=== PATIENT | male | born 1955 | race Caucasian/White ===

== ENCOUNTER → 2019-03-31 | Outpatient (CLI) | payer MEDICARE ==
[~2019-03-31] MED LIST: AMLO10 PO; FISH1000; Fiber Tabs625 MG; Garlic X400 MG; METF500 PO; Multiple Vitam1 EAC1; Pravastatin Sod40 MG PO; TRIHYD5075 PO; UBID10
== END | disposition home or self-care (01) ==
LOC: LAB SHORT 11:17 → PLD 11:17
DX: D48.5 Neoplasm of uncertain behavior of skin (principal)
CPT/HCPCS: 88305

== ENCOUNTER → 2019-04-16 | Outpatient (CLI) | payer MEDICARE | END | disposition home or self-care (01) | LOC: LAB SHORT 12:05 → PLD 12:05 | DX: C44.519 Basal cell carcinoma of skin of other part of trunk (principal) | CPT/HCPCS: 88305 ==

== ENCOUNTER 2019-06-23 11:06 | Day surgery (SDC) | payer MEDICARE ==
[~2019-06-23] VITALS: Ht 172.7 cm; Wt 81.5 kg
[2019-06-23] MEDS ORDERED: POTA10T PO (11:45)
== END 2019-06-23 13:37 | disposition home or self-care (01) ==
LOC: ORSCSDS 11:06
PROVIDERS: Internal Medicine Gastroenterology
PROC: 0DBM8ZX Excision of Descending Colon, Via Natural or Artificial Opening Endoscopic, Diagnostic (ICD-10-PCS; principal; 2019-06-23 12:30)
DX: R10.32 Left lower quadrant pain (principal); D12.4 Benign neoplasm of descending colon; Z86.010 Personal history of colon polyps; R19.5 Other fecal abnormalities; E11.9 Type 2 diabetes mellitus without complications; I10 Essential (primary) hypertension; Z79.84 Long term (current) use of oral hypoglycemic drugs; Z79.899 Other long term (current) drug therapy
CPT/HCPCS: 82947; 88305; J2704; J7120

== ENCOUNTER → 2019-09-30 | Outpatient (CLI) | payer MEDICARE ==
[~2019-09-30] MED LIST changes: +POTA10T PO
== END | disposition home or self-care (01) ==
LOC: PLD 12:09 → LAB SHORT 12:09
DX: D22.5 Melanocytic nevi of trunk (principal)
CPT/HCPCS: 88305

== ENCOUNTER → 2020-12-21 | Outpatient (CLI) | payer OTHER | END | disposition home or self-care (01) | LOC: LAB SHORT 12:00 → LAB 12:00 | DX: D22.5 Melanocytic nevi of trunk (principal); L82.1 Other seborrheic keratosis | CPT/HCPCS: 88305 ==

== ENCOUNTER → 2021-06-28 | Outpatient (CLI) | payer OTHER | END | disposition home or self-care (01) | LOC: LAB SHORT 11:12 | DX: D22.5 Melanocytic nevi of trunk (principal) | CPT/HCPCS: 88305 ==

== ENCOUNTER → 2021-07-13 | Outpatient (CLI) | payer OTHER | END | disposition home or self-care (01) | LOC: LAB SHORT 08:08 → PLD 08:08 | DX: D03.59 Melanoma in situ of other part of trunk (principal); L57.0 Actinic keratosis | CPT/HCPCS: 88305 ==